=== PATIENT | male | born 1980 ===

== ENCOUNTER 2019-08-26 10:18 | Emergency (ER) | payer OTHER ==
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
--- NOTE | 2019-08-26 11:19 | CR ---
Chest and right ribs: Frontal view of the chest was obtained as well as two views of the right ribs. Comparison: No previous study. Heart size and mediastinum are normal. Lungs are clear. No discrete fracture or other bony abnormality is seen. Impression: 1. No abnormality appreciated on two-view right rib study. 2. Nothing acute is seen on accompanying chest x-ray. Diagnostic code #1 MTDD
== END 2019-08-26 11:30 | disposition home or self-care (01) ==
LOC: MW.ED 10:18
DX: S29.9XXA Unspecified injury of thorax, initial encounter (principal); Y04.0XXA Assault by unarmed brawl or fight, initial encounter
CPT/HCPCS: 71101-26-RT; 71101-RT; 99283-25